=== PATIENT | male | born 2000 | race Caucasian/White ===

== ENCOUNTER → 2021-02-20 11:52 | Outpatient (CLI) | payer OTHER, SELFPAY ==
--- NOTE | ~2021-02-20 | XR_ITS ---
EXAMINATION: XR abdomen obstructive series DATE: 02/20/2021 12:13 INDICATION: Unspecified abdominal pain TECHNIQUE: Upright and supine views of the abdomen were obtained on three radiographs. COMPARISON: None. FINDINGS: There is no free intraperitoneal gas or evidence of bowel obstruction. The bowel gas patter n is normal. Phleboliths are noted in the pelvis. The visualized lung bases are clear. IMPRESSION: 1. No radiographic correlate for the patient's symptoms. Reviewed, dictated and finalized at location A.
== END ==
PROVIDERS: PCP Family Medicine; Visit Provider Family Medicine
DX: R10.9 Unspecified abdominal pain (principal)
CPT/HCPCS: 74019